=== PATIENT | male | born 1985 | race Caucasian/White ===

== ENCOUNTER 2016-09-04 11:04 | Inpatient (IN) | payer OTHER ==
[2016-09-04 11:41] LABS: BASOPHILS % (AUTO) 1 % (0-3); EOSINOPHILS % (AUTO) 1 % (0-9); HEMATOCRIT 42 % (39-53); MEAN CORPUSCULAR HGB CONC 35.4 gm/dl (32.0-36.0); MEAN CORPUSCULAR VOLUME 88 fL (80-100); MONOCYTES % (AUTO) 9.1 % (0-12)
[2016-09-04 11:54] LABS: ALBUMIN 4.3 gm/dl (3.4-5.0); BILIRUBIN,DIRECT 0.1 mg/dl (0.0-0.2)
[2016-09-04] MEDS ORDERED: LIDOCAINE HCL 1% MPF SOL ONE (12:13)
[2016-09-04] MEDS ORDERED: METOCLOPRAMIDE HYDROCHLORIDE 5 MG/ML SOL ONE (12:35)
[2016-09-04] MEDS ORDERED: CEFAZOLIN SODIUM 1 GM PDS ONE ×2 (13:52→21:27)
[2016-09-04] MEDS ORDERED: LACTATED RINGERS 1,000 ML IV ONE (14:01)
[2016-09-04] MEDS ORDERED: APAP/HYDROCODONE 325/5 TAB PO PRN (14:08)
[2016-09-04] MEDS ORDERED: ACETAMINOPHEN 500 MG 500 MG TAB PO PRN (14:08)
[2016-09-04] MEDS ORDERED: KETOROLAC TROMETHAMINE 30 MG/ML SOL ONE (14:16)
[2016-09-04] MEDS ORDERED: TDAP VACCINE 0.5 ML SUS IM ONE (14:33)
[2016-09-04] MEDS: CEFAZOLIN SODIUM 1 GM PDS 2 GM in SODIUM CHLORIDE 0.9% 100 ML 100 ML IV SCH ×2 (17:23→21:37)
[2016-09-04] MEDS: LACTATED RINGERS 1,000 ML IV SCH (17:24)
[2016-09-04] MEDS: SODIUM CHLORIDE 0.9% 1000ML 1,000 ML IV SCH (17:24)
[2016-09-04] MEDS ORDERED: KETOROLAC TROMETHAMINE 30 MG/ML SOL IV PRN (19:11)
[2016-09-04] MEDS ORDERED: SODIUM CHLORIDE 0.9% 100 ML 100 ML IV ONE (21:27)
[2016-09-04] MEDS: SODIUM CHLORIDE 0.9% FLUSH 10 ML SOL IV SCH (21:39)
[2016-09-05] MEDS: SODIUM CHLORIDE 0.9% 1000ML 1,000 ML IV SCH (00:51)
[2016-09-05] MEDS ORDERED: CEFAZOLIN SODIUM 1 GM PDS ONE ×3 (05:00→21:06)
[2016-09-05] MEDS ORDERED: SODIUM CHLORIDE 0.9% 100 ML 100 ML IV ONE ×3 (05:01→21:06)
[2016-09-05] MEDS: CEFAZOLIN SODIUM 1 GM PDS 2 GM in SODIUM CHLORIDE 0.9% 100 ML 100 ML IV SCH ×3 (05:53→22:13)
[2016-09-05] MEDS: SODIUM CHLORIDE 0.9% FLUSH 10 ML SOL IV SCH ×3 (05:56→22:14)
[2016-09-05] MEDS: BACITRACIN 500 U/GM OIN TOP SCH ×2 (11:40→22:13)
[2016-09-05] MEDS: LACTATED RINGERS 1,000 ML IV SCH (14:11)
[2016-09-05] MEDS ORDERED: TEMAZEPAM 15MG 15 MG CAP PO PRN (16:28)
[2016-09-06] MEDS ORDERED: SODIUM CHLORIDE 0.9% 100 ML 100 ML IV ONE (06:05)
[2016-09-06] MEDS ORDERED: CEFAZOLIN SODIUM 1 GM PDS ONE (06:05)
[2016-09-06] MEDS: CEFAZOLIN SODIUM 1 GM PDS 2 GM in SODIUM CHLORIDE 0.9% 100 ML 100 ML IV SCH (06:20)
[2016-09-06] MEDS: SODIUM CHLORIDE 0.9% FLUSH 10 ML SOL IV SCH (06:20)
[2016-09-06] MEDS: BACITRACIN 500 U/GM OIN TOP SCH (09:15)
[2016-09-06 09:26] VITALS: BP 125/70; PULSE 59; RESP 16; TEMP 98.2; O2SAT 97
== END 2016-09-06 09:55 | disposition home or self-care (01) | DRG 603 ==
LOC: CONVCARE 11:04 → ACUTE CARE 13:00
PROVIDERS: ADMIT Orthopaedic Surgery; ATTEND Orthopaedic Surgery
PROC: 0HDFXZZ Extraction of Right Hand Skin, External Approach (ICD-10-PCS; principal; 2016-09-04 13:30)
DX: L03.011 Cellulitis of right finger (principal); T63.061A Toxic effect of venom of other North and South American snake, accidental (unintentional), initial encounter
CPT/HCPCS: 36415; 71020; 73140; 80076; 85025; 85610; 85651; 85730; 87070; 87075; 87077; 87186; 90715; J0330; J0690; J1885; J2001; J2250; J2405; J2765; J3010; A4450; A6402; Q3014